=== PATIENT | male | born 1940 ===

== ENCOUNTER → 2021-09-24 12:54 | Outpatient (BNVA) | payer MEDICARE, SELFPAY | PROVIDERS: PCP Internal Medicine; Visit Provider Psychiatry & Neurology Neurology | DX: G20 Parkinson's disease (principal); R42 Dizziness and giddiness; R55 Syncope and collapse | CPT/HCPCS: 99212 ==

== ENCOUNTER 2025-01-30 13:53 | Outpatient (AMB) | payer MEDICARE, SELFPAY ==
--- NOTE | 2025-01-30 13:55 | A.OFFVIS_ITS ---
Intake Visit Reasons: 6 month f/u Accompanied by: and friend Allergies No Known Allergies Allergy (Verified 01/30/25 14:03) Medication List - Last Reconciled 01/30/25 by Natividad Rodas CNP albuterol sulfate 90 mcg/actuation inhalation apixaban (Eliquis) mg PO atorvastatin mg PO carbidopa-levodopa 25-100 mg (Sinemet) 1 tab orally alternate 1 tablet and 1/2 tablet for total of 5 doses/day; carbidopa-levodopa 25-100 mg (Sinemet) 1 tab orally 1 tablet four times a day and 2 tablets at bedtime; 90 days clopidogrel mg PO ferrous sulfate 325 mg PO DAILY fluticasone propionate 50 mcg/actuation (Allergy Relief (fluticasone)) 2 sprays intranasal DAILY gabapentin 100 mg PO TID losartan 25 mg PO DAILY meclizine 25 mg PO DAILY PRN sertraline 25 mg PO DAILY 90 days HPI Comments Details: He was doing okay for the most part. There was apparently some lesion found on his kidney that was being monitored with follow up ultrasound in 3 months. He had appointment with pulmonary and had PFTs, and was prescribed an inhaler to use before exercise. Sleep study was also ordered by pulmonary, not yet scheduled. He was taking carbidopa-levodopa 25-100mg 1 tablet at 8am and 4pm, 1/2 tablet at 12pm and 8pm, and 2-2.5 tablets at bedtime for total of between 5- 5.5 tablets/day. He had been having some trouble sleeping, and was advised to try increasing bedtime dose of gabapentin to see if that would help, but thought directions were for carbidopa-levodopa instead. His sleep may be a bit better since dose was increased, but he was still waking up early and had trouble falling back to sleep. He was tired during the day and would sometimes nap, but generally no more than 30 minutes. Tremors were okay. No difficulty eating or drinking, using weighted utensils and dishes with lip. He had some trouble swallowing medications and needed medications to be cut or crushed. He noticed that his voice was getting softer. He was walking some at home with walker. His described some gait hesitancy. No falls. He had some trouble getting out of chair or turning in bed. No dizziness or syncopal episodes. Mood was better with sertraline. Had [place] with stent at [facility] on 03/21/2024 and went to rehab. Was found to have blood clot in R leg in 12/2023, treated with Plavix and Eliquis by hematology. Passed out 09/19/22, possibly dehydrated on a hot day. Cardiology work up negative. Also had a similar episode around 2020 with dehydration. Was out for 2 minutes. He was sitting up, was given some fluids and felt better. He started developing tremors in his hands in 2018. He saw Dr. Ghosh in February of 2020, was diagnosed as having a Parkinsonian syndrome, started on Sinemet 25 100 3 times a day which made him very dizzy and he almost passed out. Dose was reduced to 1 tablet twice a day and then reduced to a half a tablet 4 times a day with an extended release 25 100 at bedtime which he was able to tolerate, although he felt tired. He has chronic low back pain radiating down both lower extremities and had lumbar disce[place] [address] Bustos, no further surgery is suggested. He tried one epidural injection which did not help. He has numbness in his feet and legs. He always had a peculiar gait where he walks with a shuffle and is using a hiking seen. He says the gait is not anything new and his of 20 years confirms this. No bladder control problems. 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 [facility] Medical History Cervical spondylosis Constipation Diverticulosis HTN (hypertension) Hyperlipidemia Lumbar spondylosis PSA elevation Surgical History Hx of appendectomy [place] teeth removed Review of Systems Const Denies chills, Denies daytime sleepiness, Reports difficulty sleeping, Denies fatigue, Denies fever(s), Denies frequent falls, Denies headache(s), Denies increased appetite, Denies poor appetite, Denies snoring, Denies weakness, Denies weight gain and Denies weight loss Eyes Denies loss of vision ENT Denies vertigo, Denies dizziness, Denies headache(s) and Denies neck pain Card Denies chest pain at rest, Denies chest pain with activity, Denies syncope, Denies leg edema, Denies palpitations, Denies dyspnea and Denies dyspnea on exertion Resp Denies cough, Denies dyspnea, Denies dyspnea on exertion and Denies snoring GI Denies abdominal pain, Denies constipation, Denies heartburn, Denies diarrhea and Denies nausea Denies urinary frequency, Denies urinary incontinence and Denies urinary urgency Musc Reports abnormal gait (balance difficulty), Reports back pain, Denies myalgias, Denies arthralgias, Denies neck pain, Reports numbness and Reports tingling Neuro Reports abnormal gait (balance difficulty), Denies vertigo, Denies dizziness, Denies syncope, Denies frequent falls, Denies headache(s), Denies lack of coordination, Denies loss of vision, Denies memory loss, Reports numbness, Denies Other visual disturbances, Denies restless legs, Denies seizure-like activity, Reports tingling, Denies paresthesias, Reports tremor(s) and Denies weakness Psych Reports anxiety, Reports depression, Denies auditory hallucinations, Denies memory loss and Denies visual hallucinations Endo Denies fatigue and Denies palpitations Physical Exam Const Other: General Appearance:? normal, in no acute distress. Heart:? S1, S2 normal, no murmurs. Lungs:? clear anteriorly and posteriorly. Musculoskeletal:? normal. Extremities:? no edema. Psych:? alert, oriented, cognitive function intact, cooperative with exam. Neuro Other: Abnormal Neurological Findings:?Decreased facial expressions and reduced blinking frequency. Mild-mod tremor of upper extremities. Increased tone in upper extremities. Mild-mod cogwheeling rigidity. Mild bradykinesia. Forward leaning posture. In wheelchair. Voice is soft. Mental Status: alert and oriented X 3. Normal attention, orientation, memory, and affect. Cranial Nerves: Pupils are equal, round, and reactive to light. External ocular muscles are intact. Visual proctor are full, no ptosis. Face is symmetrical, no facial weakness or droop. Facial sensations are normal. Tongue protrudes in midline. Palate elevates symmetrically. Shoulder shrugging is normal Motor Examination: As above.. Sensory Exam: Normal light touch, temperature, pinprick, vibration, and joint- position sensations. Rhomberg sign is absent. Coordination: No ataxia. No titubation. Gait Exam: In wheelchair. Cerebellar Signs: [id number] with mild tremor. Extrapyramidal System: As above. Speech: Normal. Assessment & Plan Assessment & Plan (1) Parkinson's disease: Code(s): G20 - Parkinson's disease Category: Medical Plan: Increase carbidopa-levodopa 25-100mg 1 tablet 4x/day (at 8am, 12pm, 4pm, 8pm) and 2 tablets at bedtime (total of 6 tablets/day) - written instructions provided. Stay physically active, use walker. Follow up 3-4 months or sooner as needed. (2) Anxiety: Code(s): F41.9 - Anxiety disorder, unspecified Category: Medical Plan: Continue sertraline 25mg 1 tablet daily. (3) Insomnia: Code(s): G47.00 - Insomnia, unspecified Category: Medical Qualifiers: Insomnia type: unspecified Qualified Code(s): G47.00 - Insomnia, unspecified Plan: He was following with pulmonary and had sleep study ordered. Will hold off on starting any medications for sleep at this time until after sleep study is completed. Medications: New sertraline 25 mg PO DAILY 90 tabs 1RF 90 days Changed From carbidopa-levodopa 25-100 mg (Sinemet) 1 tab orally alternate 1 tablet and 1/2 tablet for total of 5 doses/day; To carbidopa-levodopa 25-100 mg (Sinemet) 1 tab orally 1 tablet four times a day and 2 tablets at bedtime; 540 tabs 1RF 90 days Coding Level of Care Code Est Pt Level 4 (39901) Diagnoses Parkinson's disease G20 Anxiety F41.9 Insomnia, unspecified type G47.00 Insomnia type: unspecified
--- OUTSIDE RECORDS SUMMARY | 2025-01-30 17:16 | XMS_ITS | Encounter Summary ---
Author Organization [facility] Address [address] [place] [address] Care Team Providers Care Fire Hydrant Operator Name Role Phone Ligia Ramos MD Primary Care Provider [phone] Encounter Details Date Type Department Care Team (Late st Contact Info) Description 03/24/2024 Lab Requisition [facility] - Main Lab [address] [facility] [place] [address] Zoey Pappas MD [address] [place] [phone] Encounter for other general examination Social History Tobacco Use Types Packs/Day Years Used Date Smoking Tobacco: Never Smokeless Tobacco: Never Alcohol Use Standard Drinks/Week Comments Not Currently 0 (1 standard drink = 0.6 oz pur e alcohol) Sex and Gender Information Value Date Recorded Sex Assigned at Male 06/20/2024 3:21 PM EDT Legal Sex Male 4:26 AM EST Gender Identity Male 06/20/2024 3:21 PM EDT Sexual Orientation Straight 06/20/2024 3: 21 PM EDT documented as of this encounter Plan of Treatment Upcoming Encounters Date Type Department Care Team (Late Contact Info) Description 02/25/2025 2:00 PM EST [facility] [address] [place] [address] Ligia Ramos MD [address] [place], [place] 02/25/2025 2:30 PM EST Clinical Support Internal [facility] - [facility] [address] [place] [phone] 04/29/2025 2:45 PM EST Office Visit Pulmonology - [place] [address] [place] [phone] Lashaun Foster MD [address] [place] [phone] 01/09/2026 1:00 PM EDT Office Visit Vascular Surgery - [place] [address] [place] [phone] Mikayla Bryan PA [address] [place] [phone] documented as of this encounter Procedures Procedure Name Priority Date/Time Associated Diagnosis Comments CBC WITH AUTO DIFFERENTIAL Routine 03/24/2024 5:57 AM EST Encounter for other general examination CBC AND DIFFERENTIAL Routine 03/24/2024 5:57 AM EST Encounter for other general examination MAGNESIUM Routine 03/24/2024 5:57 AM EST Encounter for other general examination COMPREHENSIVE METABOLIC PANEL Routine 03/24/2024 5:57 AM EST Encounter for other general examination documented in this encounter Results * (ABNORMAL) CBC auto differential (03/24/2024 5:57 AM EST) WBC 8.0 4.8 - 10.8 K/mcL LAB HEMETOLOGY METHOD 03/24/2024 12:07 PM EST [facility] RBC 3.50(L) 4.50 - 5.50 M/mcL LAB HEMETOLOGY METHOD 03/24/2024 12:07 PM EST [facility] Hemoglobin 11.1(L) 13.5 - 17.5 g/dL LAB HEMETOLOGY METHOD 03/24/2024 12:[address] [facility] Hematocrit 34.3(L) 42.0 - 54.0 % LAB HEMETOLOGY METHOD 03/24/2024 12:[address] [facility] MCV 97.7 79.0 - 98.0 FL LAB HEMETOLOGY METHOD 03/24/2024 12:[address] [facility] MCH 31.6 27.0 - 32.0 pcg LAB HEMETOLOGY METHOD 03/24/2024 12:[address] [facility] MCHC 32.4 32.0 - 37.0 g/dL LAB HEMETOLOGY METHOD 03/24/2024 12:[address] [facility] RDW 13.4 11.0 - 15.0 % LAB HEMETOLOGY METHOD 03/24/2024 12:[address] [facility] Platelets 200 130 - 400 K/mcL LAB HEMETOLOGY METHOD 03/24/2024 12:[address] [facility] MPV 10.6 7.0 - 11.0 FL LAB HEMETOLOGY METHOD 03/24/2024 12:[address] [facility] NRBC 0.0 <1.0 % LAB HEMETOLOGY METHOD 03/24/2024 12:[address] [facility] NRBC Absolute 0.00 <0.10 K/mcL LAB HEMETOLOGY METHOD 03/24/2024 12:[address] [facility] Neutrophils Relative 73.0 % LAB HEMETOLOGY METHOD 03/24/2024 12:[address] [facility] Lymphocytes Relative 15.6 % LAB HEMETOLOGY METHOD 03/24/2024 12:[address] [facility] Monocytes Relative 9.3 % LAB HEMETOLOGY METHOD 03/24/2024 12:[address] [facility] Eosinophils Relative 1.4 % LAB HEMETOLOGY METHOD 03/24/2024 12:[address] [facility] Basophils Relative 0.4 % LAB HEMETOLOGY METHOD 03/24/2024 12:[address] [facility] Immature Granulocytes Relative 0.3 % LAB HEMETOLOGY METHOD 03/24/2024 12:[address] [facility] Neutrophils Absolute 5.85 1.50 - 7.00 K/mcL LAB HEMETOLOGY METHOD 03/24/2024 12:[address] [facility] Lymphocytes Absolute 1.25 1.00 - 5.00 K/mcL LAB HEMETOLOGY METHOD 03/24/2024 12:[address] [facility] Monocytes Absolute 0.74 0.20 - 1.00 K/mcL LAB HEMETOLOGY METHOD 03/24/2024 12:[address] [facility] Eosinophils Absolute 0.11 0.00 - 0.50 K/mcL LAB HEMETOLOGY METHOD 03/24/2024 12:[address] [facility] Basophils Absolute 0.03 0.00 - 0.20 K/mcL LAB HEMETOLOGY METHOD 03/24/2024 12:[address] [facility] Immature Granulocytes Absolute 0.02 0.00 - 0.03 K/mcL LAB HEMETOLOGY METHOD 03/24/2024 12:[address] [facility] Blood Venous blood specimen / Unknown Venipuncture / Unknown 03/24/2024 5:57 AM EST 03/24/2024 9:32 AM EST us Zoey Pappas MD LAB BLOOD ORDERABLES Final Res ult [facility] [address] [place] [address], * (ABNORMAL) Magnesium (03/24/2024 5:57 AM EST) Magnesium 1.6(L) 1.9 - 2.6 mg/dL LAB CHEMISTRY METHOD 03/24/2024 11:[address] [facility] Blood Venous blood specimen / Unknown Venipuncture / Unknown 03/24/2024 5:57 AM EST 03/24/2024 9:32 AM EST us Zoey Pappas MD LAB BLOOD ORDERABLES Final Res ult [facility] [address] [place] [address], [place] [phone] * (ABNORMAL) Comprehensive metabolic panel (03/24/2024 5:57 AM EST) Sodium 138 133 - 145 mmol/L LAB CHEMISTRY METHOD 03/24/2024 11:[address] [facility] Potassium 3.7 3.5 - 5.5 mmol/L LAB CHEMISTRY METHOD 03/24/2024 11:[address] [facility] Chloride 107 96 - 110 mmol/L LAB CHEMISTRY METHOD 03/24/2024 11:[address] [facility] CO2 26 21 - 32 mmol/L LAB CHEMISTRY METHOD 03/24/2024 11:[address] [facility] Anion Gap 5 3 - 11 LAB CHEMISTRY METHOD 03/24/2024 11:[address] [facility] Glucose 104(H) 70 - 100 mg/dL LAB CHEMISTRY METHOD 03/24/2024 11:[address] [facility] BUN 26(H) 5 - 25 mg/dL LAB CHEMISTRY METHOD 03/24/2024 11:[address] [facility] Creatinine 0.84 0.70 - 1.30 mg/dL LAB CHEMISTRY METHOD 03/24/2024 11:[address] [facility] eGFR 87 >=60 mL/min/1. 73m2 LAB CHEMISTRY METHOD 03/24/2024 11:[address] [facility] Comment:Calculation based on the Chronic Kidney Disease Epidemiology Collaboration (CKD-EPI) equation refit without adjustment for race. BUN/Creatinine Ratio 31.0 LAB CHEMISTRY METHOD 03/24/2024 11:[address] [facility] Calcium 9.0 8.5 - 10.5 mg/dL LAB CHEMISTRY METHOD 03/24/2024 11:[address] [facility] AST (SGOT) 54(H) 10 - 42 unit/L LAB CHEMISTRY METHOD 03/24/2024 11:[address] [facility] ALT (SGPT) 18 10 - 60 unit/L LAB CHEMISTRY METHOD 03/24/2024 11:[address] [facility] Alkaline Phosphatase 52 42 - 121 unit/L LAB CHEMISTRY METHOD 03/24/2024 11:[address] [facility] Total Protein 5.8(L) 6.0 - 8.0 g/dL LAB CHEMISTRY METHOD 03/24/2024 11:[address] [facility] Albumin 3.3 3.2 - 5.0 g/dL LAB CHEMISTRY METHOD 03/24/2024 11:[address] [facility] Total Bilirubin 0.7 0.0 - 1.4 mg/dL LAB CHEMISTRY METHOD 03/24/2024 11:[address] [facility] Blood Venous blood specimen / Unknown Venipuncture / Unknown 03/24/2024 5:57 AM EST 03/24/2024 9:32 AM EST us Zoey Pappas MD LAB BLOOD ORDERABLES Final Res ult [facility] [address] [place] [address], documented in this encounter Visit Diagnoses Diagnosis Encounter for other general examination documented in this encounter Care Teams Fire Hydrant Operator Relationship Specialty Start Date End Date Ligia Ramos MD [address] [place] [address] PCP - General Internal Medicine 10/21/24 documented as of this encounter
--- OUTSIDE RECORDS SUMMARY | 2025-01-30 17:17 | XMS_ITS | Clinical Summary ---
Author Organization [address] Address [address] [place] [address] Phone Care Team Providers Care Dry Transfer Man Name Role Phone Ligia Ramos MD Primary Care Provider [phone] Allergies Active Allergy Reactions Criticality Noted Date Comments Irbesartan 10/20/2008 Medications acetaminophen (TYLENOL 8 HOUR ORAL) Take 1 tablet by mouth 1 (one) time each day if needed (mild pain). Active Myrbetriq 25 mg 24 hr tablet Take 1 tablet (25 mg total) by mouth 1 (one) time each day. 08/30/19 24 Active melatonin 5 mg tablet Take 1 tablet (5 mg total) by mouth at bedtime as needed for sleep. Active carbidopa-levo dopa (SINEMET) 25-100 mg per tablet Take 1 tablet by mouth 3 (three) times a day. 0800, 1600, 2200 12/31/19 24 Active triamcinolone (KENALOG) 0.1 % cream Apply topically 2 (two) times a day. 05/29/19 25 Active sertraline (ZOLOFT) 25 mg tablet Take 1 tablet (25 mg total) by mouth 1 (one) time each day. 10 tablet 08/01/19 25 Active atorvastatin (LIPITOR) 80 mg tablet Take 1 tablet (80 mg total) by mouth 1 (one) time each day. at bedtime. 90 tablet 1 08/22/19 25 Active clopidogreL (PLAVIX) 75 mg tabletIndicati ons:ST elevation myocardial infarction involving right coronary artery (CMS/HCC V24, CMS/HCC V28) Take 1 tablet (75 mg total) by mouth 1 (one) time each day. 90 each 1 08/22/19 25 025 Active gabapentin (NEURONTIN) 100 mg capsule Take 1 capsule (100 mg total) by mouth 3 (three) times a day. 270 capsule 08/23/19 25 Active magnesium oxide (MAG-OX) 400 mg (241.3 elemental magnesium) tabletIndicati ons:Hypomagnes emia Take 1 tablet (400 mg total) by mouth 1 (one) time each day. 30 tablet 2 10/21/19 25 Active carbidopa-levo dopa (SINEMET) 25-100 mg per tablet Take 0.5 tablets by mouth 2 (two) times a day. Alternating with full tab at 1200 + 2000 Active apixaban (ELIQUIS) 2.5 mg tabletIndicati ons:Deep vein thrombosis (DVT) of femoral vein of right lower extremity, unspecified chronicity (CMS/HCC V24, CMS/HCC V28) Take 1 tablet (2.5 mg total) by mouth 2 (two) times a day. 180 each 3 01/08/20 25 026 Active losartan (COZAAR) 25 mg tablet Take 0.5 tablets (12.5 mg total) by mouth 2 (two) times a day. 90 tablet 1 01/15/20 25 Active albuterol HFA (PROAIR HFA ; PROVENTIL HFA ; VENTOLIN HFA) 90 mcg/actuation inhaler Inhale 2 puffs by mouth every 6 (six) hours if needed for wheezing or shortness of breath. 1 each 11 01/24/20 25 026 Active losartan (COZAAR) 25 mg tablet Take 0.5 tablets (12.5 mg total) by mouth 2 (two) times a day. 90 tablet 1 08/08/19 25 025 Discontinued(R eorder) Eliquis 5 mg tablet Take 1 tablet (5 mg total) by mouth 2 (two) times a day. 180 tablet 1 10/22/19 25 025 Discontinued Active Problems Problem Noted Date Diagnosed Date Mediastinal lymphadenopathy 07/03/2024 Anxiety disorder 06/26/2024 Coronary artery disease invo lving elem coronary artery of elem heart without angina pectoris 05/30/2024 Assessment & Plan (10/21/2024 2:31 PM EDT): Continue clopidogrel, atorvastatin, losartan. He will continue follow-up with cardiology. Assessment & Plan (05/30/2024 2:29 PM EDT): Patient for now we will continue current regimen of clopidogrel, atorvastatin, losartan. He is already on apixaban for his history of DVT. Atopic dermatitis 05/28/2024 Depressive disorder 05/28/2024 Finding of above normal blood pressure Deep vein thrombosis (DVT) o f femoral vein of right lower extremity (CMS/[facility] V24, CMS/HCC V28) 04/18/2024 Assessment & Plan (10/21/2024 2:31 PM EDT): Continue Eliquis 5 mg twice a day. Went over the risks of being on full dose anticoagulation including bleeding. Recommend him to go to the ER immediately if he ever falls or hits his head or if he has any profuse bleeding. Patient is in agreement with plan. Assessment & Plan (05/30/2024 2:29 PM EDT): Continue apixaban. Being followed by vascular and hematology. ST elevation myocardial infa rction involving right coronary artery (CMS/HCC V24, CMS/HCC V28) 04/08/2024 Acute deep vein thrombosis ( DVT) of right lower extremity (CMS/HCC V24, CMS/HCC V28) 02/14/2024 Assessment & Plan (02/27/2024 12:28 PM EST): For now he will continue his regimen of Eliquis for his DVT. He will follow-up with hematology and vascular. Advised to keep his legs elevated. Syncope 02/06/2023 Benign prostatic hyperplasia with urinary freque ncy 01/24/2023 Assessment & Plan (05/30/2024 2:29 PM EDT): Referral to urology has been placed. Orders: Ambulatory referral to Urology; Future OAB (overactive bladder) 01/24/2023 Chronic low back pain with bilateral sciatica Overview (05/25/2023): Last Assessment & Plan: Mr. Bernard had a fall about 3 weeks ago. He had 3 days of intense pain different than his baseline chronic pain. Fortunately this has resolved. An x-ray from January shows a compression fracture at L1 that is new since a CT of the chest on September 23, 2020. This may have resulted from the fall but we cannot know that it is acute based on the x-ray alone. At this point, it does not really matter as he is not having any symptoms associated with that and would like to go back to physical therapy. I provided him a new physical therapy prescription. He will call if he has a return of pain and at that point we would need either an MRI or a bone scan to determine the chronicity of the L1 fracture. Parkinson disease ([facility] V24, [facility] V28) Assessment & Plan (02/27/2024 12:28 PM EST): Continue follow-up with neurology. He is on carbidopa-levodopa. Referral to podiatry for toenail clipping. Orders: Ambulatory referral to Podiatry; Future Elevated PSA 10/17/2019 Tremor 10/05/2019 Overview (05/25/2023): 10/06-abnormal MRI with nonspecific changes, pending follow-up with neurology Pulmonary nodule 11/14/2017 Allergic rhinitis 10/24/2017 Hyperlipidemia 10/24/2017 Assessment & Plan (10/21/2024 2:31 PM EDT): Follow low-cholesterol diet and continue atorvastatin. Orders: Lipid panel with reflex to direct LDL; Future Assessment & Plan (05/30/2024 2:29 PM EDT): Follow low-cholesterol diet and continue atorvastatin. Hypertension 10/24/2017 Assessment & Plan (10/21/2024 2:31 PM EDT): Blood pressure stable. Follow low-sodium diet. No changes to his regimen of losartan. BMP already ordered. Assessment & Plan (05/30/2024 2:29 PM EDT): Follow low-sodium diet. No changes to his current blood pressure regimen of losartan. Assessment & Plan (02/27/2024 12:28 PM EST): Blood pressure is much better controlled with losartan 12.5 mg twice a day. Continue this regimen. Tubular adenoma 10/24/2017 Overview (05/25/2023): Recurrent, 7 mm tubular adenoma 10/14/20 - repeat in 5 years Lumbar radiculopathy 06/21/2017 External hemorrhoids 05/03/2017 Overview (05/25/2023): And internal Diverticulosis of colon 08/19/2015 Resolved Problems Problem Noted Date Diagnosed Date Resolved Date Chronic constipation 06/21/2017 025 Encounters Date Type Department Care Team Description 01/23/2025 3:00 PM EST Consult Pulmonology - [address] [phone] Lashaun Foster MD Dyspnea, unspecified type (Primary Dx); Snoring; Parkinson's disease with dyskinesia and fluctuating manifestations (CMS/HCC V24, CMS/HCC V28); Pulmonary embolism, other, unspecified chronicity, unspecified whether acute cor pulmonale present (CMS/HCC V24, CMS/HCC V28); Abnormal chest CT 01/23/2025 2:30 PM EST Ancillary Procedure Pulmonology - [address] [phone] Dyspnea, unspecified type (Primary Dx) 01/14/2025 1:40 PM EDT Office Visit Gastroenterology [address] [phone] Shauna Huynh PA Anemia, unspecified type (Primary Dx) 01/11/2025 [facility]phone [facility] [phone] Ligia Ramos MD 01/07/2025 1:00 PM EDT Office Visit Vascular Surgery - [place] [address] [place] [phone] Wilda Washburn PA Right leg swelling (Primary Dx); Deep vein thrombosis (DVT) of femoral vein of right lower extremity, unspecified chronicity (CMS/HCC V24, CMS/HCC V28) 12/27/2024 [facility]phone [facility] [phone] Ligia Ramos MD 12/17/2024 Telephone Internal Medicine - [address] [phone] Ligia Ramos MD 12/17/2024 Billing Patient Not Present Internal Medicine - [address] [phone] Renzo Hazel, KARLO Parkinson's disease without dyskinesia, unspecified whether manifestations fluctuate (CMS/HCC V24, CMS/HCC V28) (Primary Dx); Malignant neoplasm of left kidney, except renal pelvis (CMS/HCC V24, CMS/HCC V28); Benign prostatic hyperplasia with lower urinary tract symptoms, symptom details unspecified; Frequency of micturition; Overactive bladder; Other chronic pain; Other constipation 12/16/2024 [facility]phone [facility] [address] [place] [address] Ligia Ramos MD 12/16/2024 Telephone [facility] [phone] Ligia Ramos MD 12/09/2024 12:43 PM EDT - 12/09/2024 11:59 PM EDT Hospital Encounter [facility] Ultrasound [address] [place] [phone] Right leg swelling Discharge Disposition: Home or Self Care 12/09/2024 Telephone Internal Medicine - [facility] [address] [place], [place] [phone] Ligia Ramos MD 12/06/2024 12:00 PM EDT Office Visit [facility] Hematology Oncology [address] [place] [phone] Jazmin De Leon DO Chronic deep vein thrombosis (DVT) of proximal vein of lower extremity, unspecified laterality ([facility] V24, [facility] V28) (Primary Dx); Left renal mass 12/06/2024 Telephone Internal Medicine - [place] [address] [place], [place] [address] [phone] Ligia Ramos MD 12/06/2024 Telephone Internal Medicine - [facility] [address] [place] [address] Ligia Ramos MD 11/27/2024 Telephone [facility] Hematology Oncology [address] [place] [phone] Nelida Pedersen [place] 11/21/2024 Telephone Internal Medicine - [facility] [address] [place] [address] Ligia Ramos MD 11/20/2024 10:30 AM EDT [facility] [address] [place], [place] [address], [place] [phone] Renzo Hazel NP Left renal mass (Primary Dx); Parkinsonism, unspecified Parkinsonism type ([facility] V24, [facility] V28); SOB (shortness of breath) 11/20/2024 Telephone Internal Medicine - [facility] [address] [facility] [place] [phone] Ligia Ramos MD 11/12/2024 Telephone Internal Medicine - [facility] [address] [place] [phone] Ligia Ramos MD 11/01/2024 Telephone Internal Medicine - [facility] [address] [facility] [place] [phone] Ligia Ramos MD 10/31/2024 Telephone Internal Medicine - [facility] [address] [place] [address] Ligia Ramos MD 10/31/2024 Telephone Internal Medicine - [facility] [address] [place] [address] Ligia Ramos MD 10/30/2024 Telephone Internal Medicine - [facility] [address] [place] [phone] Ligia Ramos MD 10/28/2024 6:04 AM EDT - 10/30/2024 4:18 PM EDT Emergency [facility] Emergency [address] [place] [phone] Agustin Marques MD Landry, MD Rosey Ngo, MD Alex Schulte, MD Shun Lopez Joshua, MD Mersier, Jasmine, Elevated PSA (Primary Dx); Lumbar strain, initial encounter; Acute midline low back pain without sciatica; Tremor; Parkinson's disease without fluctuating manifestations, unspecified whether dyskinesia present (CMS/HCC V24, CMS/HCC V28); Lumbar radiculopathy; Benign prostatic hyperplasia with urinary frequency; Chronic low back pain with bilateral sciatica, unspecified back pain laterality Discharge Disposition: Home-Health Care c from Last 3 Months Immunizations Immunization Administration Dates Next Due Influenza Quadravalent, 0.5m l (Fluad) 65yo and older 12/19/2022,12/23/2021 Influenza Quadravalent, 0.5m l (Fluzone High-dose) 65yo and older 12/19/2022 Influenza Quadravalent, MDCK , 0.5ml, with preservative (Flucelvax) 6mo and older 12/26/2018 Influenza trivalent, 0.5mL ( Fluad) 65yo and older 02/14/2024 Influenza trivalent, 0.5mL ( Fluzone High-dose) 65yo and older 12/23/2021,12/02/2020,01/17/2020,01/11,04/16/2017 Influenza trivalent, with pr eservative (Fluzone; Afluria) 6mo and older 12/26/2018,01/02/2016 Moderna SARS-CoV-2 COVID-19, mRNA, LNP-S, preservative free 12/18/2022 Pfizer (ages 12 & older) Biv alent, COVID-19 12/23/2021 Pfizer SARS-CoV-2 COVID-19, mRNA, LNP-S, preservative free 11/01/2020 Pneumococcal conjugate 13 va lent (Prevnar 13, PCV13) 2mo and older 01/11/2018,02/19/2016 Pneumococcal polysaccharide 23 valent (Pneumovax 23) 2yo and older 12/26/2018 Td Tetanus diptheria (Tdvax) 7yo and older 01/17/2020 Surgical History Surgery Date Site/Laterality Comments LUMBAR LAMINECTOMY 2015 PROCEDURE: HISTORICAL LUMB LAMINECTOMY CATARACT EXTRACTION 2018 Bilateral PROCEDURE: HISTORICAL CATARACT REMOVAL CL PCI - PERCUTANEOUS MCWILLIAMS RY INTERVENT PCI with RES to culprit RCA and residual moderate disease in the LAD Medical History Medical History Date Comments Allergic rhinitis 10/24/2017 DX:Allergic rh initis Chronic constipation 06/21/2017 DX:Chronic constipation Diverticulosis of colon 08/19/2015 DX:Diver ticulosis of colon External hemorrhoids 05/03/2017 DX:External hemorrhoids; COMMENT: And internal Hyperlipidemia 10/24/2017 DX:Hyperlipidemi a Hypertension 10/24/2017 DX:Hypertension Lumbar radiculopathy 06/21/2017 DX:Lumbar r adiculopathy Pulmonary nodule 11/14/2017 DX:Pulmonary no dule Tubular adenoma 10/24/2017 DX:Tubular adeno ma Benign prostatic hyperplasia with urinary frequency 01/24/2023 DX:Benign prostatic hyperpla alireza with urinary frequency OAB (overactive bladder) 01/24/2023 DX:OAB (overactive bladder) STEMI (ST elevation myocardi al infarction) (CMS/HCC V24, CMS/HCC V28) Parkinson's disease (CMS/HCC V24, CMS/HCC V28) Family History Medical History Relation Name Comments Prostate cancer Father Alzheimer's disease Mother Other: tremor Other cousin Relation Name Status Comments Father Mother Other cousin Alive Social History Tobacco Use Types Packs/Day Years Used Date Smoking Tobacco: Never Smokeless Tobacco: Never Tobacco Cessation:Counseling Given: Not Answered Alcohol Use Standard Drinks/Week Comments Not Currently 0 (1 standard drink = 0.6 oz pur e alcohol) Sex and Gender Information Value Date Recorded Sex Assigned at Male 06/20/2024 3:21 PM EDT Legal Sex Male 4:26 AM EST Gender Identity Male 06/20/2024 3:21 PM EDT Sexual Orientation Straight 06/20/2024 3: 21 PM EDT Obstetrics History Last Filed Vital Signs Vital Sign Reading Time Taken Comments Blood Pressure 120/60 01/14/2025 1:41 PM EDT Pulse 90 01/23/2025 3:26 PM EST Temperature 36.1 C (97 F) 01/23/2025 3:26 PM EST Respiratory Rate 20 01/23/2025 3:26 PM EST Oxygen Saturation 96% 01/23/2025 3:26 PM EST Inhaled Oxygen Concentration - - Weight 63.5 kg (140 lb) 01/23/2025 3:26 PM EST Height 170.2 cm (5' 7 ) 01/23/2025 3:26 PM EST Body Mass Index 21.93 01/23/2025 3:26 PM EST Plan of Treatment Upcoming Encounters Date Type Department Care Team (Late st Contact Info) Description 02/25/2025 2:00 PM EST Office Visit Internal Medicine - [address] [phone] Ligia Ramos MD [address] [place], [place] 02/25/2025 2:30 PM EST Clinical Support Internal Medicine - [address] [phone] 04/29/2025 2:45 PM EST Office Visit Pulmonology - [place] [address] [place] [phone] Lashaun Foster MD [address] [place] [phone] 01/09/2026 1:00 PM EDT Office Visit Vascular Surgery - [place] [address] [place] [phone] Mikayla Bryan PA [facility] [place] [phone] Health Maintenance Due Date Last Done Comments Zoster Vaccines (1 of 2) 02/03/1992 RSV Immunization Adult Patients (1 - 1-dose 75+ series) 2017 Medicare Annual Wellness Visit 02/26/2022 Social Influencers of Health Screening 02/26/2022 Falls Risk Assessment 11/15/2023 11/14/2022 Depression Screening 03/20/2024 COVID-19 Vaccine ( season) 2024 12/19/2022, 12/18/2022, 12/23/2021, Additional history exists Influenza Vaccine (#1) 2024 , 12/31/2023, 12/19/2022, Additional history exists Colorectal Cancer Screening: Colonoscopy 10/14/2025 10/14/2020 Hypertension/CHF/CAD Annual BMP Blood Test 10/29/2025 10/29/2024, 10/21/2024, 04/01/2024, Additional history exists Cholesterol Screening (Lipid Panel) 10/21/2029 10/21/2024, 01/06/2023 DTaP,Tdap,and Td Vaccines (2 - Td or Tdap) 01/16/2030 01/17/2020 Pneumococcal Vaccine: 50+ Years Completed 12/26/2018, 01/11/2018, 02/19/2016 HIB Vaccines Aged Out No longer eligi ble based on patient's age to complete this topic HPV Vaccines Aged Out No longer eligi ble based on patient's age to complete this topic Hepatitis A Vaccines Aged Out No long er eligible based on patient's age to complete this topic Hepatitis B Vaccines Aged Out No long er eligible based on patient's age to complete this topic IPV Vaccines Aged Out No longer eligi ble based on patient's age to complete this topic MMR Vaccines Aged Out No longer eligi ble based on patient's age to complete this topic Meningococcal ACWY Vaccine Aged Out N o longer eligible based on patient's age to complete this topic Meningococcal B Vaccine Aged Out No l onger eligible based on patient's age to complete this topic RSV Immunization Patients Under 20 months Aged Out No longer eligible based on patient's age to complete this topic Varicella Vaccines Aged Out No longer eligible based on patient's age to complete this topic Procedures Procedure Name Priority Date/Time Associated Diagnosis Comments ECHO OUTSIDE IMAGES/REPORT Routine 01/30/2025 9:11 AM EST HOME HEALTH ORDER 01/25/2025 PULMONARY FUNCTION TESTING Routine 01/23/2025 4:12 PM EST Dyspnea, unspecified type VAS US DUPLEX LOWER EXT VENOUS RIGHT Routine 12/09/2024 1:19 PM EDT Right leg swelling BENEDICT URINE CULTURE TUBE Routine 11/01/2024 10:58 AM EDT Urinary tract infection without hematuria, site unspecified URINALYSIS WITH REFLEX MICROSCOPIC AND CULTURE Routine 11/01/2024 10:57 AM EDT Urinary tract infection without hematuria, site unspecified URINALYSIS WITH REFLEX MICROSCOPIC AND CULTURE Routine 11/01/2024 10:57 AM EDT Urinary tract infection without hematuria, site unspecified ECG ANNOTATED 11/01/2024 BASIC METABOLIC PANEL STAT 10/29/2024 3:06 AM EDT LIPID PANEL WITH REFLEX TO DIRECT LDL Routine 10/21/2024 3:01 PM EDT Hyperlipidemia, unspecified hyperlipidemia type HM COLONOSCOPY Routine 10/14/2020 from Last 3 Months or Most Recently Relevant to Health Maintenance Results * Echo Outside Images/Report (01/30/2025 9:11 AM EST) Anatomical Region Laterality Modality Ultrasound Historical Provider MD ADKINS ECHO PROCEDURES Final Result * Home Health Order (01/25/2025) Provider [facility] NURSING ASSESSMENTS Jennifer l Result * Pulmonary function testing: Carbon Monoxide Diffusing Capacity, Nitrogen Wash Out, Spirometry with Bronchodilator, Vital Capacity Test (01/23/2025 4:12 PM EST) Impressions Lashaun Foster MD - 01/23/2025 4:12 PM EST FEV1/FVC 89%. FEV1 2.12 at 90%. FVC 70%. No bronchodilator spine. Spirometry does not show obvious obstruction. us Lashaun Foster MD PFT ORDERABLES Final Result * Vascular US duplex lower extremity venous right (12/09/2024 1:19 PM EDT) Anatomical Region Laterality Modality Vascular, Abdomen Ultrasound 12/09/2024 1:36 PM EDT Impressions 12/09/2024 1:40 PM EDT Stable chronic deep vein thrombosis. Nonocclusive deep venous thrombosis in the common femoral vein and popliteal vein with occlusive deep venous thrombosis within the femoral vein. -------- FINAL REPORT -------- Dictated By: Flakito Torres Dictated Date: 12/09/2024 13:36 ET Assigned Physician: Flakito Torres Reviewed and Electronically Signed By: Flakito Torres Signed Date: 12/09/2024 13:40 ET Workstation ID: [id number] Transcribed By: Self Edit Transcribed Date: 12/09/2024 13:38 ET Narrative 12/09/2024 1:40 PM EDT Ultrasound duplex right lower extremity. INDICATION: DVT Hx edema TECHNIQUE: 2-D and color Doppler imaging of the right lower extremity venous vasculature with compression and augmentation maneuvers. COMPARISON: 06/25/2024 FINDINGS: Region with known deep venous thrombosis. There is nonocclusive deep venous thrombosis in the common femoral vein and popliteal vein with occlusive deep venous thrombosis within the femoral vein. The peroneal vein is not visualized. There is no deep venous thrombosis within the visualized posterior tibial vein. No fluid collection. Procedure Note Flakito Torres MD - 12/09/2024 Ultrasound duplex right lower extremity. INDICATION: DVT Hx edema TECHNIQUE: 2-D and color Doppler imaging of the right lower extremityvenous vasculature with compression and augmentation maneuvers. COMPARISON: 06/25/2024 FINDINGS: Region with known deep venous thrombosis. There is nonocclusive deepvenous thrombosis in the common femoral vein and popliteal vein withocclusive deep venous thrombosis within the femoral vein. The peronealvein is not visualized. There is no deep venous thrombosis within thevisualized posterior tibial vein. No fluid collection. IMPRESSION: Stable chronic deep vein thrombosis. Nonocclusive deep venous thrombosis in the common femoral vein andpopliteal vein with occlusive deep venous thrombosis within the femoralvein. -------- FINAL REPORT -------- Dictated By: Flakito Torres Dictated Date: 12/09/2024 13:36 ET Assigned Physician: Flakito Torres Reviewed and Electronically Signed By: Flakito Torres Signed Date: 12/09/2024 13:40 ET Workstation ID: [id number] Transcribed By: Self Edit Transcribed Date: 12/09/2024 13:38 ET Wilda GOMEZ CV VASCULAR PROCEDURES Final Result * Benedict urine culture tube (11/01/2024 10:58 AM EDT) Pathologist [facility] Extra Tube Hold for add-ons. 11/01/2024 4:01 PM EDT [facility] Comment:Auto resulted. Urine Urine specimen obtained by clean catch procedure / Unknown Non-blood Collection / Unknown 11/01/2024 10:58 AM EDT 11/01/2024 10:58 AM EDT us Zhen Basilio MD LAB URINE ORDERABLES Jennifer l Result [facility] [address] [place] [address], [place] [phone] * Urinalysis with reflex microscopic and culture (11/01/2024 10:57 AM EDT) Specific [place] Urine 1.021 1.003 - 1.030 LAB URINALYSIS - AUTOMATED METHOD 11/01/2024 2:01 PM [facility] pH, Urine 6.0 5.0 - 8.0 pH LAB URINALYSIS - AUTOMATED METHOD 11/01/2024 2:01 PM [facility] Leukocytes, Urine Negative Negative LAB URINALYSIS - AUTOMATED METHOD 11/01/2024 2:01 PM [facility] Nitrite, Urine Negative Negative LAB URINALYSIS - AUTOMATED METHOD 11/01/2024 2:01 PM [facility] Protein, Urine Negative <=Trace mg/dL LAB URINALYSIS - AUTOMATED METHOD 11/01/2024 2:01 PM [facility] Glucose, Urine Negative Negative mg/dL LAB URINALYSIS - AUTOMATED METHOD 11/01/2024 2:01 PM [facility] Ketones, Urine Negative Negative mg/dL LAB URINALYSIS - AUTOMATED METHOD 11/01/2024 2:01 PM [facility] Urobilinogen, Urine 1.0 0.2 - 1.0 mg/dL LAB URINALYSIS - AUTOMATED METHOD 11/01/2024 2:01 PM [facility] Bilirubin, Urine Negative Negative LAB URINALYSIS - AUTOMATED METHOD 11/01/2024 2:01 PM [facility] Blood, Urine Negative Negative LAB URINALYSIS - AUTOMATED METHOD 11/01/2024 2:01 PM [facility] Urine Urine specimen obtained by clean catch procedure / Unknown Non-blood Collection / Unknown 11/01/2024 10:57 AM EDT 11/01/2024 10:58 AM EDT us Zhen Basilio MD LAB URINE ORDERABLES Jennifer l Result [facility] [address] [place] [address], * ECG-Annotated (11/01/2024) us Provider Onbase MD ECG ORDERABLES Final Result * (ABNORMAL) Basic metabolic panel (10/29/2024 3:06 AM EDT) Sodium 136 133 - 145 mmol/L LAB CHEMISTRY METHOD 10/29/2024 3:58 AM [facility] Potassium 3.8 3.5 - 5.5 mmol/L LAB CHEMISTRY METHOD 10/29/2024 3:58 AM [facility] Chloride 102 96 - 110 mmol/L LAB CHEMISTRY METHOD 10/29/2024 3:58 AM [facility] CO2 26 21 - 32 mmol/L LAB CHEMISTRY METHOD 10/29/2024 3:58 AM [facility] Anion Gap 8 3 - 11 LAB CHEMISTRY METHOD 10/29/2024 3:58 AM [facility] Glucose 180(H) 70 - 100 mg/dL LAB CHEMISTRY METHOD 10/29/2024 3:58 AM [facility] BUN 22 5 - 25 mg/dL LAB CHEMISTRY METHOD 10/29/2024 3:58 AM [facility] Creatinine 0.90 0.70 - 1.30 mg/dL LAB CHEMISTRY METHOD 10/29/2024 3:58 AM [facility] eGFR 85 >=60 mL/min/1. 73m2 LAB CHEMISTRY METHOD 10/29/2024 3:58 AM [facility] Comment:Calculation based on the Chronic Kidney Disease Epidemiology Collaboration (CKD-EPI) equation refit without adjustment for race. BUN/Creatinine Ratio 24.4 LAB CHEMISTRY METHOD 10/29/2024 3:58 AM [facility] Calcium 9.1 8.5 - 10.5 mg/dL LAB CHEMISTRY METHOD 10/29/2024 3:58 AM [facility] Blood Venous blood specimen / Unknown Venipuncture / Unknown 10/29/2024 3:06 AM EDT 10/29/2024 3:37 AM EDT us Traun Currie MD LAB BLOOD ORDERABLES Final R esult [facility] [address] [place] [address], [place] [phone] * (ABNORMAL) Lipid panel with reflex to direct LDL (10/21/2024 3:01 PM EDT) Cholesterol 137 0 - 200 mg/dL LAB CHEMISTRY METHOD 10/21/2024 7:51 PM EDT [facility] Triglycerides 204(H) 0 - 150 mg/dL LAB CHEMISTRY METHOD 10/21/2024 7:51 PM EDT [facility] HDL 50 >=40 mg/dL LAB CHEMISTRY METHOD 10/21/2024 7:51 PM EDT [facility] LDL Calculated 46 0 - 100 mg/dL LAB CHEMISTRY METHOD 10/21/2024 7:51 PM EDT [facility] VLDL Cholesterol Brad 40.8 mg/dL LAB CHEMISTRY METHOD 10/21/2024 7:51 PM EDT [facility] Non HDL Chol. (LDL+VLDL) 87 <145 mg/dL LAB CHEMISTRY METHOD 10/21/2024 7:51 PM EDT [facility] Chol/HDL Ratio 2.7 0.0 - 4.4 LAB CHEMISTRY METHOD 10/21/2024 7:51 PM EDT [facility] Blood Venous blood specimen / Unknown Venipuncture / Unknown 10/21/2024 3:01 PM EDT 10/21/2024 3:01 PM EDT Zhen Basilio MD LAB BLOOD ORDERABLES Jennifer l Result [facility] [address] [place] [address], * Colonoscopy (10/14/2020) Colonoscopy abnormal Anatomical Region Laterality Modality Other Historical Provider HEALTH MAINTENANCE Final Result from Last 3 Months or Most Recently Relevant to Health Maintenance Insurance MEDICARE [facility] Advance Directives Documents on File Type Date Recorded Patient Shop Steward Expl anation Health Care Decision (hx) 11/01/2023 RASHAD HICKS DIRECTIVE Care Teams Dry Transfer Man Relationship Specialty Start Date End Date Ligia Ramos MD [facility] [address] [place], [place] PCP - General Internal Medicine 10/21/24
--- OUTSIDE RECORDS SUMMARY | 2025-01-30 17:17 | XMS_ITS | Encounter Summary ---
Author Organization [facility] Address [address] [place] [address] Care Team Providers Care Communication Technician Name Role Phone Ligia Ramos MD Primary Care Provider [phone] Encounter Details Date Type Department Care Team (Late st Contact Info) Description 04/01/2024 Lab Requisition [facility] - Main Lab [address] [facility] [place] [address] Zoey Pappas MD [address] [place] [phone] Encounter for other general examination Social History [...] PM EST [facility] [address] [place] [address] Ligia Ramos MD [address] [place], [place] 02/25/2025 2:30 PM EST Clinical Support Internal Medicine - [facility] [address] [place] [address] 04/29/2025 2:45 PM EST Office Visit Pulmonology - [place] [address] [place] [phone] Lashaun Foster MD [address] [place] [phone] 01/09/2026 1:00 PM EDT Office Visit Vascular Surgery - [place] [address] [place] [phone] Mikayla Bryan PA [address] [place] [phone] documented as of this encounter Procedures Procedure Name Priority Date/Time Associated Diagnosis Comments COMPLETE BLOOD COUNT Routine 04/01/2024 6:56 AM EST Encounter for other general examination MAGNESIUM Routine 04/01/2024 6:56 AM EST Encounter for other general examination BASIC METABOLIC PANEL Routine 04/01/2024 6:56 AM EST Encounter for other general examination documented in this encounter Results * (ABNORMAL) Magnesium (04/01/2024 6:56 AM EST) Magnesium 1.8(L) 1.9 - 2.6 mg/dL LAB CHEMISTRY METHOD 04/01/2024 12:16 PM EST [facility] Blood Venous blood specimen / Unknown Venipuncture / Unknown 04/01/2024 6:56 AM EST 04/01/2024 9:40 AM EST us Zoey Pappas MD LAB BLOOD ORDERABLES Final Res ult [facility]) [facility] [address] [place] [address], * (ABNORMAL) Complete blood count (04/01/2024 6:56 AM EST) [facility] WBC 8.2 4.8 - 10.8 K/mcL LAB HEMETOLOGY METHOD 04/01/2024 11:43 AM [facility] RBC 4.20(L) 4.50 - 5.50 M/mcL LAB HEMETOLOGY METHOD 04/01/2024 11:43 AM [facility] Hemoglobin 13.2(L) 13.5 - 17.5 g/dL LAB HEMETOLOGY METHOD 04/01/2024 11:43 AM [facility] Hematocrit 39.7(L) 42.0 - 54.0 % LAB HEMETOLOGY METHOD 04/01/2024 11:43 AM [facility] MCV 95.4 79.0 - 98.0 FL LAB HEMETOLOGY METHOD 04/01/2024 11:43 AM [facility] MCH 31.7 27.0 - 32.0 pcg LAB HEMETOLOGY METHOD 04/01/2024 11:43 AM [facility] MCHC 33.2 32.0 - 37.0 g/dL LAB HEMETOLOGY METHOD 04/01/2024 11:43 AM [facility] RDW 13.0 11.0 - 15.0 % LAB HEMETOLOGY METHOD 04/01/2024 11:43 AM [facility] Platelets 294 130 - 400 K/mcL LAB HEMETOLOGY METHOD 04/01/2024 11:43 AM [facility] MPV 10.4 7.0 - 11.0 FL LAB HEMETOLOGY METHOD 04/01/2024 11:43 AM [facility] NRBC 0.0 <1.0 % LAB HEMETOLOGY METHOD 04/01/2024 11:43 AM [facility] NRBC Absolute 0.00 <0.10 K/mcL LAB HEMETOLOGY METHOD 04/01/2024 11:43 AM EST [facility] Blood Venous blood specimen / Unknown Venipuncture / Unknown 04/01/2024 6:56 AM EST 04/01/2024 9:40 AM EST us Zoey Pappas MD LAB BLOOD ORDERABLES Final Res ult [facility] [address] [place] [address], [place] [phone] * (ABNORMAL) Basic metabolic panel (04/01/2024 6:56 AM EST) Sodium 136 133 - 145 mmol/L LAB CHEMISTRY METHOD 04/01/2024 12:16 PM [facility] Potassium 4.3 3.5 - 5.5 mmol/L LAB CHEMISTRY METHOD 04/01/2024 12:16 PM [facility] Chloride 104 96 - 110 mmol/L LAB CHEMISTRY METHOD 04/01/2024 12:16 PM [facility] CO2 27 21 - 32 mmol/L LAB CHEMISTRY METHOD 04/01/2024 12:16 PM [facility] Anion Gap 5 3 - 11 LAB CHEMISTRY METHOD 04/01/2024 12:16 PM [facility] Glucose 113(H) 70 - 100 mg/dL LAB CHEMISTRY METHOD 04/01/2024 12:16 PM [facility] BUN 24 5 - 25 mg/dL LAB CHEMISTRY METHOD 04/01/2024 12:16 PM [facility] Creatinine 0.82 0.70 - 1.30 mg/dL LAB CHEMISTRY METHOD 04/01/2024 12:16 PM [facility] eGFR 88 >=60 mL/min/1. 73m2 LAB CHEMISTRY METHOD 04/01/2024 12:16 PM [facility] Comment:Calculation based on the Chronic Kidney Disease Epidemiology Collaboration (CKD-EPI) equation refit without adjustment for race. BUN/Creatinine Ratio 29.3 LAB CHEMISTRY METHOD 04/01/2024 12:16 PM EST [facility] Calcium 9.4 8.5 - 10.5 mg/dL LAB CHEMISTRY METHOD 04/01/2024 12:16 PM EST [facility] Blood Venous blood specimen / Unknown Venipuncture / Unknown 04/01/2024 6:56 AM EST 04/01/2024 9:40 AM EST us Zoey Pappas MD LAB BLOOD ORDERABLES Final Res ult [facility] [address] [place] [address], documented in this encounter Visit Diagnoses Diagnosis Encounter for other general examination documented in this encounter Care Teams Communication Technician Relationship Specialty Start Date End Date Ligia Ramos MD [address] [place], [place] PCP - General Internal Medicine 10/21/24 documented as of this encounter
== END 2025-01-30 14:35 | disposition home or self-care (01) ==
LOC: HO.HSM 13:53
PROVIDERS: PCP Internal Medicine; Referring Provider Internal Medicine; Visit Provider Registered Nurse
DX: G20.C Parkinsonism, unspecified (principal); F41.9 Anxiety disorder, unspecified; G47.00 Insomnia, unspecified
CPT/HCPCS: 99214

== ENCOUNTER → 2025-01-30 13:53 | Outpatient (BNVA) | payer MEDICARE, SELFPAY | PROVIDERS: PCP Internal Medicine; Referring Provider Internal Medicine; Visit Provider Registered Nurse | DX: G20.C Parkinsonism, unspecified (principal); F02.84 Dementia in other diseases classified elsewhere, unspecified severity, with anxiety; G47.00 Insomnia, unspecified; Z79.01 Long term (current) use of anticoagulants | CPT/HCPCS: 99212 ==